=== PATIENT | female | born 1990 | race American Indian/Alaskan Native ===

== ENCOUNTER 2016-11-13 09:06 | Outpatient (CLI) | payer MEDICAID ==
--- NOTE | 2016-11-13 10:23 | Ultrasound Report ---
Right breast ultrasound: 31 week lady with newly palpable right breast mass. Imaging in the area of concern at 3:00 demonstrates an irregular but sharply contoured mass which is somewhat elongated parallel to the skin having a maximum dimension of 17.5 mm. With color imaging there is minimal internal flow. A similar but less irregular shaped nodule is located at 1:00 measuring 1 cm. It also has internal flow. Impression: Indeterminate breast nodules. Both lesions most likely represent the same tissue. Recommendation: Ultrasound guided biopsy of the 3:00 lesion due to its size and contour. The findings and recommendations have been discussed with the patient and her mother. BI-RADS CATEGORY: 4 = Suspicious ACR BI-RADS MAMMOGRAPHIC CODES: 0 = Needs additional imaging evaluation; 1 = Negative; 2 = Benign; 3 = Probably benign; 4 = Suspicious; 5 = Malignant; 6 = Known biopsy-proven malignancy COMMENT: 1. Dense breast tissue, i.e., adenosis, fibrocystic changes, etc., may obscure an underlying neoplasm. 2. Approximately 10% of cancers are not detected with mammography. 3. A negative mammography report should not delay biopsy if a clinically suspicious mass is present.
== END 2016-11-13 09:07 | disposition home or self-care (01) ==
LOC: US 09:06
PROVIDERS: ATTEND Advanced Practice Midwife
DX: N63 Unspecified lump in breast (principal)

== ENCOUNTER 2016-12-01 14:32 | Outpatient (CLI) | payer MEDICAID, OTHER | END 2016-12-01 14:33 | disposition home or self-care (01) | LOC: LABHHL 14:32 | PROVIDERS: ATTEND Surgery | DX: D24.1 Benign neoplasm of right breast (principal); N62 Hypertrophy of breast | CPT/HCPCS: 88305 ==

== ENCOUNTER 2016-12-16 08:38 | Outpatient (CLI) | payer MEDICAID ==
[2016-12-16 09:38] VITALS: BP 111/69
--- NOTE | 2016-12-16 09:59 | Ultrasound Report ---
ULTRASOUND BIOPHYSICAL PROFILE: History: well being Technique: Transabdominal ultrasound with Doppler interrogation. 2 - breathing movements 2 - movements 2 - posture and tone 2 - Qualitative amniotic fluid volume 8 - TOTAL SCORE OF POSSIBLE 8 Heart Rate (bpm) 135
--- NOTE | 2016-12-16 10:01 | Ultrasound Report ---
OB ULTRASOUND FOLLOWUP History: well-being, evaluate amniotic fluid Technique: Transabdominal ultrasound with Doppler interrogation. Gestation: Single Position: Cephalic Amniotic Fluid: Normal CYDNEY = 8.2 cm Heart Rate: 145 BPM BPD: 8.9 cm = 36 w 1 d HC: 32.7 cm = 37 w 0 d AC: 34.6 cm = 38 w 3 d FL: 7.4 cm = 37 w 5 d HC/AC Ratio: 0.94 Cephalic Index: 79.5 Estimated Weight: 3327 grams LMP: 04/08/16 Clinical age = 36 w 0 d EDC: 01/13/17 US Gest. Age = 37 w 2 d EDC: 01/04/17 IMPRESSION: No acute abnormality appreciated.
== END 2016-12-16 09:55 | disposition home or self-care (01) ==
LOC: TRG 08:38
PROVIDERS: ATTEND Obstetrics & Gynecology
DX: O47.03 False labor before 37 completed weeks of gestation, third trimester (principal); Z3A.35 35 weeks gestation of pregnancy
CPT/HCPCS: 59025; 76816; 76819

== ENCOUNTER 2019-01-08 15:00 | Emergency (ER) | payer MEDICAID ==
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
[2019-01-08] MEDS ORDERED: TETANUS,DIPH,PERTUSS(ACELL) VACCINE 0.5 ML SYRINGE IM ONE (15:09)
[2019-01-08] MEDS ORDERED: HYDROcodone/ACETAMINOPHEN 10-325MG TAB PO ONE (15:18)
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
[2019-01-08 16:21] VITALS: BP 120/74
== END 2019-01-08 18:01 | disposition home or self-care (01) ==
LOC: ED 15:00
DX: S93.401A Sprain of unspecified ligament of right ankle, initial encounter (principal); S00.03XA Contusion of scalp, initial encounter; Z91.040 Latex allergy status; Z79.899 Other long term (current) drug therapy; Y04.8XXA Assault by other bodily force, initial encounter; Y93.89 Activity, other specified; Y92.89 Other specified places as the place of occurrence of the external cause; Y99.8 Other external cause status
CPT/HCPCS: 70450; 70486; 72125; 90471; 90715

== ENCOUNTER 2019-06-19 17:18 | Emergency (ER) | payer SELFPAY ==
[2019-06-19 17:29] VITALS: BP 120/75
--- NOTE | 2019-06-19 18:03 | XRay Report ---
CHEST 2 VIEWS INDICATION / CLINICAL INFORMATION: SOB. COMPARISON: Chest x-ray 03/14/2019 FINDINGS: SUPPORT DEVICES: None. HEART / MEDIASTINUM: No significant abnormality. LUNGS / PLEURA: No significant pulmonary or pleural abnormality. No pneumothorax. ADDITIONAL FINDINGS: Mild/moderate scoliosis with bilateral Maya rods. IMPRESSION: 1. No acute findings. Signer Name: Ghassan Medina MD Signed: 06/19/2019 5:59 PM Workstation Name: [id number]
--- NOTE | 2019-06-19 18:36 | Emergency Department Report ---
ED General Adult HPI - General Chief complaint: Dyspnea/Respdistress Stated complaint: O2 LOW Time Seen by Provider: 06/19/19 18:22 Source: patient Mode of arrival: Ambulatory Limitations: No Limitations - History of Present Illness Initial comments: 29-year-old Ethiopian female resents emerged department complaining of a two-week history of cough with occasional chest congestion and mucus production but no wheezing, no hemoptysis no hematemesis no hematochezia no nausea, no vomiting no shortness of breath. States that she went to an urgent care earlier today to be evaluated and was found to have a oxygen saturation of [id number] so she was advised to come to the emergency department for further evaluation due to a reportedly decreased saturation and vague upper lateral rib pain Radiation: non-radiation Quality: aching Consistency: constant Improves with: none Worsens with: none Associated Symptoms: chest pain, cough. denies: diaphoresis, fever/chills, loss of appetite, malaise, nausea/vomiting, shortness of breath, syncope, weakness Treatments Prior to Arrival: none - Related Data Previous Rx's Medication Instructions Recorded Last Taken Type Gentamicin 0.3% Ophth Soln 2 drops OP Q4H 5 Days bottle 10/30/13 Unknown Rx Promethazine /Codeine 5 ml PO Q6H PRN #100 ml 11/29/13 Unknown Rx [Phenergan/Codeine 6.25-10 mg/5 ml] Ondansetron [Zofran Odt] 4 mg PO Q8HR PRN #12 tab.rapdis 06/08/15 Unknown Rx Sulfamethoxazole/Trimethoprim 1 each PO BID #14 tablet 06/08/15 Unknown Rx [Bactrim DS TAB] Ibuprofen [Motrin 800 MG tab] 800 mg PO Q6H PRN #30 tablet 01/03/17 Unknown Rx Acetaminophen/Codeine [Tylenol 1 tab PO Q6H PRN #12 tab 01/08/19 Unknown Rx /Codeine # 3 tab] Silver Sulfadiazine [Silvadene] 50 gm TP DAILY #1 cream..g. 01/08/19 Unknown Rx Sulfamethoxazole/Trimethoprim 1 each PO BID #14 tablet 01/08/19 Unknown Rx [Bactrim DS TAB] Ciprofloxacin HCl [Ciprofloxacin 500 mg PO Q12HR #20 tab 03/14/19 Unknown Rx TAB] Phenazopyridine [Pyridium] 200 mg PO TID #9 tab 03/14/19 Unknown Rx Azithromycin [Zithromax] 500 mg PO QDAY #3 tablet 06/19/19 Unknown Rx Benzonatate [Tessalon Perles] 100 mg PO Q8HR #20 capsule 06/19/19 Unknown Rx Allergies Allergy/AdvReac Type Severity Reaction Status Date / Time Latex, Natural Rubber Allergy Severe Swelling Verified 06/08/15 14:25 ED Review of Systems ROS: Stated complaint: O2 LOW Other details as noted in HPI Comment: All other systems reviewed and negative ED Past Medical Hx - Past Medical History Previous Medical History?: No Hx Hypertension: No Hx Congestive Heart Failure: No Hx Diabetes: No Hx Deep Vein Thrombosis: No Hx Renal Disease: No Hx Sickle Cell Disease: No Hx Seizures: No Hx Asthma: No Hx COPD: No Hx HIV: No - Surgical History Past Surgical History?: Yes Additional Surgical History: back surgery 2000 - Social History Smoking Status: Never Smoker Substance Use Type: None - Medications Home Medications: Home Medications Medication Instructions Recorded Confirmed Last Taken Type Gentamicin 0.3% Ophth Soln 2 drops OP Q4H 5 Days bottle 10/30/13 01/02/17 Unknown Rx Promethazine /Codeine 5 ml PO Q6H PRN #100 ml 11/29/13 01/02/17 Unknown Rx [Phenergan/Codeine 6.25-10 mg/5 ml] Ondansetron [Zofran Odt] 4 mg PO Q8HR PRN #12 tab.rapdis 06/08/15 01/02/17 Unknown Rx Sulfamethoxazole/Trimethoprim 1 each PO BID #14 tablet 06/08/15 01/02/17 Unknown Rx [Bactrim DS TAB] Ibuprofen [Motrin 800 MG tab] 800 mg PO Q6H PRN #30 tablet 01/03/17 Unknown Rx Acetaminophen/Codeine [Tylenol 1 tab PO Q6H PRN #12 tab 01/08/19 Unknown Rx /Codeine # 3 tab] Silver Sulfadiazine [Silvadene] 50 gm TP DAILY #1 cream..g. 01/08/19 Unknown Rx Sulfamethoxazole/Trimethoprim 1 each PO BID #14 tablet 01/08/19 Unknown Rx [Bactrim DS TAB] Ciprofloxacin HCl [Ciprofloxacin 500 mg PO Q12HR #20 tab 03/14/19 Unknown Rx TAB] Phenazopyridine [Pyridium] 200 mg PO TID #9 tab 03/14/19 Unknown Rx Azithromycin [Zithromax] 500 mg PO QDAY #3 tablet 06/19/19 Unknown Rx Benzonatate [Tessalon Perles] 100 mg PO Q8HR #20 capsule 06/19/19 Unknown Rx ED Physical Exam - General Limitations: No Limitations General appearance: alert, in no apparent distress - Head Head exam: Present: atraumatic, normocephalic - Eye Eye exam: Present: normal appearance, PERRL, EOMI Pupils: Present: normal accommodation - ENT ENT exam: Present: normal exam, normal orophraynx, mucous membranes moist - Neck Neck exam: Present: normal inspection - Respiratory Respiratory exam: Present: normal lung sounds bilaterally. Absent: respiratory distress - Cardiovascular Cardiovascular Exam: Present: regular rate, normal rhythm. Absent: systolic murmur, diastolic murmur, rubs, gallop - GI/Abdominal GI/Abdominal exam: Present: soft, normal bowel sounds - Extremities Exam Extremities exam: Present: normal inspection, full ROM, normal capillary refill - Back Exam Back exam: Present: normal inspection. Absent: CVA tenderness (R), CVA tenderness (L), muscle spasm - Neurological Exam Neurological exam: Present: alert, oriented X3, CN II-XII intact, normal gait - Psychiatric Psychiatric exam: Present: normal affect, normal mood - Skin Skin exam: Present: warm, dry, intact, normal color. Absent: rash ED Course Vital Signs 06/19/19 17:25 Temperature 98.4 F Pulse Rate 110 H Respiratory 18 Rate Blood Pressure 120/75 O2 Sat by Pulse 98 Oximetry ED Medical Decision Making - Radiology Data Radiology results: report reviewed [facility] [address] [place] [address] XRay Report Signed Patient: NICOLE NORTH MR#: [id number] : 1990 Acct:[id number] Age/Sex: 29 / F ADM Date: 06/19/19 Loc: ED Attending Dr: Ordering Physician: ZO POTTER Date of Service: 06/19/19 Procedure(s): XR chest routine 2V Accession Number(s): [id number] cc: ZO POTTER Fluoro Time In Minutes: CHEST 2 VIEWS INDICATION / CLINICAL INFORMATION: SOB. COMPARISON: Chest x-ray 03/14/2019 FINDINGS: SUPPORT DEVICES: None. HEART / MEDIASTINUM: No significant abnormality. LUNGS / PLEURA: No significant pulmonary or pleural abnormality. No pneumothorax. ADDITIONAL FINDINGS: Mild/moderate scoliosis with bilateral Maya rods. IMPRESSION: 1. No acute findings. Signer Name: Ghassan Medina MD Signed: 06/19/2019 5:59 PM Workstation Name: [id number] Transcribed By: TL Dictated By: Ghassan Medina MD Electronically Authenticated By: Ghassan Medina MD Signed Date/Time: 06/19/191758 DD/ 57 TD/TT: - Medical Decision Making This patient presents with acute cough, most consistent with bronchitis. Differential diagnosis includes bronchitis. Presentation not consistent with acute bacterial pneumonia, influenza, asthma, transient airway hyperresponsiveness. Presentation not consistent with chronic causes of cough (including GERD, asthma, postnasal discharge, medication side effect, CHF, lung cancer or mass). Plan: Normal CXR, supportive care, reassess Critical care attestation.: If time is entered above; I have spent that time in minutes in the direct care of this critically ill patient, excluding procedure time. ED Disposition Clinical Impression: Bronchitis Disposition: DC-01 TO HOME OR SELFCARE Is pt being admited?: No Does the pt Need Aspirin: No Condition: Stable Instructions: Chronic Bronchitis (ED), Acute Bronchitis (ED) Referrals: [facility] [Provider Group] - 3-5 Days
== END 2019-06-19 18:48 | disposition home or self-care (01) ==
LOC: ED 17:18
DX: J40 Bronchitis, not specified as acute or chronic (principal)
CPT/HCPCS: 71046

== ENCOUNTER 2019-09-23 09:27 | Emergency (ER) | payer MEDICAID ==
[2019-09-23 09:38] VITALS: BP 134/79
--- NOTE | 2019-09-23 12:30 | Emergency Department Report ---
ED Upper Extremity Inj HPI - General Chief Complaint: Extremity Injury, Upper Stated Complaint: LEFT ARM PAIN/CP Time Seen by Provider: 09/23/19 12:21 Source: patient Mode of arrival: Ambulatory Limitations: No Limitations - History of Present Illness Initial Comments: pt presents for left axillary abscess small x 2 days, denies fever , chills, no n/v, no drainage, pain is 3/10 , exacerbated by palpation, relieved by nothing tried. MD Complaint: Injury to:: left - Related Data Previous Rx's Medication Instructions Recorded Last Taken Type Gentamicin 0.3% Ophth Soln 2 drops OP Q4H 5 Days bottle 10/30/13 Unknown Rx Promethazine /Codeine 5 ml PO Q6H PRN #100 ml 11/29/13 Unknown Rx [Phenergan/Codeine 6.25-10 mg/5 ml] Ondansetron [Zofran Odt] 4 mg PO Q8HR PRN #12 tab.rapdis 06/08/15 Unknown Rx Sulfamethoxazole/Trimethoprim 1 each PO BID #14 tablet 06/08/15 Unknown Rx [Bactrim DS TAB] Ibuprofen [Motrin 800 MG tab] 800 mg PO Q6H PRN #30 tablet 01/03/17 Unknown Rx Acetaminophen/Codeine [Tylenol 1 tab PO Q6H PRN #12 tab 01/08/19 Unknown Rx /Codeine # 3 tab] Silver Sulfadiazine [Silvadene] 50 gm TP DAILY #1 cream..g. 01/08/19 Unknown Rx Sulfamethoxazole/Trimethoprim 1 each PO BID #14 tablet 01/08/19 Unknown Rx [Bactrim DS TAB] Ciprofloxacin HCl [Ciprofloxacin 500 mg PO Q12HR #20 tab 03/14/19 Unknown Rx TAB] Phenazopyridine [Pyridium] 200 mg PO TID #9 tab 03/14/19 Unknown Rx Azithromycin [Zithromax] 500 mg PO QDAY #3 tablet 06/19/19 Unknown Rx Benzonatate [Tessalon Perles] 100 mg PO Q8HR #20 capsule 06/19/19 Unknown Rx cephALEXin [Keflex] 500 mg PO Q8HR 7 Days #21 cap 09/23/19 Unknown Rx traMADoL [Ultram] 50 mg PO Q6HR PRN #12 tablet 09/23/19 Unknown Rx Allergies Allergy/AdvReac Type Severity Reaction Status Date / Time Latex, Natural Rubber Allergy Severe Swelling Verified 06/08/15 14:25 ED Review of Systems ROS: Stated complaint: LEFT ARM PAIN/CP Other details as noted in HPI Constitutional: denies: chills, fever Eyes: denies: eye pain, eye discharge, vision change ENT: denies: ear pain, throat pain Respiratory: denies: cough, shortness of breath, wheezing Cardiovascular: denies: chest pain, palpitations Endocrine: no symptoms reported Gastrointestinal: denies: abdominal pain, nausea, diarrhea Genitourinary: denies: urgency, dysuria, discharge Musculoskeletal: denies: back pain, joint swelling, arthralgia Skin: other (abscess left axillary ) Neurological: denies: headache, weakness, paresthesias Psychiatric: denies: anxiety, depression Hematological/Lymphatic: denies: easy bleeding, easy bruising ED Past Medical Hx - Past Medical History Previous Medical History?: No Hx Hypertension: No Hx Congestive Heart Failure: No Hx Diabetes: No Hx Deep Vein Thrombosis: No Hx Renal Disease: No Hx Sickle Cell Disease: No Hx Seizures: No Hx Asthma: No Hx COPD: No Hx HIV: No - Surgical History Past Surgical History?: Yes Additional Surgical History: back surgery 2000 - Social History Smoking Status: Never Smoker Substance Use Type: None - Medications Home Medications: Home Medications Medication Instructions Recorded Confirmed Last Taken Type Gentamicin 0.3% Ophth Soln 2 drops OP Q4H 5 Days bottle 10/30/13 01/02/17 Unknown Rx Promethazine /Codeine 5 ml PO Q6H PRN #100 ml 11/29/13 01/02/17 Unknown Rx [Phenergan/Codeine 6.25-10 mg/5 ml] Ondansetron [Zofran Odt] 4 mg PO Q8HR PRN #12 tab.rapdis 06/08/15 01/02/17 Unknown Rx Sulfamethoxazole/Trimethoprim 1 each PO BID #14 tablet 06/08/15 01/02/17 Unknown Rx [Bactrim DS TAB] Ibuprofen [Motrin 800 MG tab] 800 mg PO Q6H PRN #30 tablet 01/03/17 Unknown Rx Acetaminophen/Codeine [Tylenol 1 tab PO Q6H PRN #12 tab 01/08/19 Unknown Rx /Codeine # 3 tab] Silver Sulfadiazine [Silvadene] 50 gm TP DAILY #1 cream..g. 01/08/19 Unknown Rx Sulfamethoxazole/Trimethoprim 1 each PO BID #14 tablet 01/08/19 Unknown Rx [Bactrim DS TAB] Ciprofloxacin HCl [Ciprofloxacin 500 mg PO Q12HR #20 tab 03/14/19 Unknown Rx TAB] Phenazopyridine [Pyridium] 200 mg PO TID #9 tab 03/14/19 Unknown Rx Azithromycin [Zithromax] 500 mg PO QDAY #3 tablet 06/19/19 Unknown Rx Benzonatate [Tessalon Perles] 100 mg PO Q8HR #20 capsule 06/19/19 Unknown Rx cephALEXin [Keflex] 500 mg PO Q8HR 7 Days #21 cap 09/23/19 Unknown Rx traMADoL [Ultram] 50 mg PO Q6HR PRN #12 tablet 09/23/19 Unknown Rx ED Physical Exam - General Limitations: No Limitations General appearance: alert, in no apparent distress - Head Head exam: Present: atraumatic, normocephalic - Eye Eye exam: Present: normal appearance - ENT ENT exam: Present: normal exam - Neck Neck exam: Present: normal inspection - Respiratory Respiratory exam: Present: normal lung sounds bilaterally. Absent: respiratory distress - Cardiovascular Cardiovascular Exam: Present: regular rate, normal rhythm. Absent: systolic murmur, diastolic murmur, rubs, gallop - GI/Abdominal GI/Abdominal exam: Present: soft, normal bowel sounds - Rectal Rectal exam: Present: deferred - Extremities Exam Extremities exam: Present: full ROM, tenderness (left axillary abscess 1x1 cm , firm non fluctuant , mild erythema, no drainage. ). Absent: normal capillary refill, joint swelling - Back Exam Back exam: Present: normal inspection - Neurological Exam Neurological exam: Present: alert, oriented X3 - Psychiatric Psychiatric exam: Present: normal affect, normal mood - Skin Skin exam: Present: warm, dry, intact, normal color, erythema (left axillary abscess as above). Absent: rash ED Course Vital Signs 09/23/19 09:36 Temperature 97.4 F L Pulse Rate 99 H Respiratory 17 Rate Blood Pressure 134/79 O2 Sat by Pulse 99 Oximetry ED Medical Decision Making - Medical Decision Making pt declined I&D of left axillary abscess. dc to home with rx , follow up with pcp, warm compresses , pt verbalized agreemena and understanding of same. Critical care attestation.: If time is entered above; I have spent that time in minutes in the direct care of this critically ill patient, excluding procedure time. ED Disposition Clinical Impression: Abscess of left axilla Disposition: - TO HOME OR SELFCARE Is pt being admited?: No Does the pt Need Aspirin: No Condition: Stable Instructions: Abscess (ED) Prescriptions: cephALEXin [Keflex] 500 mg PO Q8HR 7 Days #21 cap traMADoL [Ultram] 50 mg PO Q6HR PRN #12 tablet PRN Reason: Pain Referrals: [facility] [Provider Group] - 3-5 Days Forms: Work/School Release Form(ED) Time of Disposition: 12:26
== END 2019-09-23 13:30 | disposition home or self-care (01) ==
LOC: ED 09:27
DX: L02.412 Cutaneous abscess of left axilla (principal); Z79.1 Long term (current) use of non-steroidal anti-inflammatories (NSAID); Z79.899 Other long term (current) drug therapy; Z91.040 Latex allergy status
CPT/HCPCS: 99282

== ENCOUNTER 2020-05-27 03:51 | Emergency (ER) | payer SELFPAY | END 2020-05-27 04:30 | disposition left against medical advice (07) | LOC: ED 03:51 | DX: R51.9 Headache, unspecified (principal); Z53.21 Procedure and treatment not carried out due to patient leaving prior to being seen by health care provider ==

== ENCOUNTER 2020-12-04 12:49 | Emergency (ER) | payer OTHER ==
[2020-12-04 13:07] VITALS: BP 109/80
--- NOTE | 2020-12-04 14:38 | Vascular Lab Report ---
DUPLEX DOPPLER LOWER EXTREMITY VEINS, RIGHT INDICATION: right posterior leg pain after road trip. Lower extremity pain and swelling. TECHNIQUE: Duplex doppler imaging was performed through the veins of the right lower extremity using venous comp ression and other maneuvers. COMPARISON: None available. FINDINGS: Common Femoral vein: Negative. Superficial Femoral vein: Negative. Popliteal vein: Negative. Calf veins: Negative. Additional findings: None. IMPRESSION: 1. No sonographic evidence for DVT in the right lower extremity. Signer Name: Víctor Rainey MD Signed: 12/04/2020 2:33 PM Workstation Name: [id number]
--- NOTE | 2020-12-04 15:41 | Emergency Department Report ---
ED General Adult HPI - General Chief complaint: Chest Pain Stated complaint: CHESTPAIN/RT LEG PAIN Time Seen by Provider: 12/04/20 13:11 Source: patient Mode of arrival: Ambulatory Limitations: No Limitations - History of Present Illness Initial comments: Chief complaint: "I had a little bit of chest pain. I really came to get my leg checked out." HPI: This is a healthy 30-year-old female with no significant past medical history who presents with right leg pain for 2 months. Pain began after a road trip. Patient has nondescript chest pain which began 1 week ago. Mild in nature. Not persistent. Patient does not have any chest pain this time. Denies shortness of breath. Her main concern to months of posterior right knee right leg pain. Father has history of DVT. No swelling. No trauma. -: Gradual, month(s) (2 months) Location: chest, right, lower extremity Severity scale (0 -10): 2 Quality: aching, dull Consistency: constant Improves with: none Worsens with: none Associated Symptoms: chest pain, other (Right leg pain) - Related Data Previous Rx's Medication Instructions Recorded Last Taken Type Gentamicin 0.3% Ophth Soln 2 drops OP Q4H 5 Days bottle 10/30/13 Unknown Rx Promethazine /Codeine 5 ml PO Q6H PRN #100 ml 11/29/13 Unknown Rx [Phenergan/Codeine 6.25-10 mg/5 ml] Ondansetron [Zofran Odt] 4 mg PO Q8HR PRN #12 tab.rapdis 06/08/15 Unknown Rx Sulfamethoxazole/Trimethoprim 1 each PO BID #14 tablet 06/08/15 Unknown Rx [Bactrim DS TAB] Ibuprofen [Motrin 800 MG tab] 800 mg PO Q6H PRN #30 tablet 01/03/17 Unknown Rx Acetaminophen/Codeine [Tylenol 1 tab PO Q6H PRN #12 tab 01/08/19 Unknown Rx /Codeine # 3 tab] Silver Sulfadiazine [Silvadene] 50 gm TP DAILY #1 cream..g. 01/08/19 Unknown Rx Sulfamethoxazole/Trimethoprim 1 each PO BID #14 tablet 01/08/19 Unknown Rx [Bactrim DS TAB] Ciprofloxacin HCl [Ciprofloxacin 500 mg PO Q12HR #20 tab 12/31/19 Unknown Rx TAB] Phenazopyridine [Pyridium] 200 mg PO TID #9 tab 03/14/19 Unknown Rx Azithromycin [Zithromax] 500 mg PO QDAY #3 tablet 06/19/19 Unknown Rx Benzonatate [Tessalon Perles] 100 mg PO Q8HR #20 capsule 06/19/19 Unknown Rx cephALEXin [Keflex] 500 mg PO Q8HR 7 Days #21 cap 09/23/19 Unknown Rx traMADoL [Ultram] 50 mg PO Q6HR PRN #12 tablet 09/23/19 Unknown Rx Allergies Allergy/AdvReac Type Severity Reaction Status Date / Time Latex, Natural Rubber Allergy Severe Swelling Verified 12/04/20 13:03 ED Review of Systems ROS: Stated complaint: CHESTPAIN/RT LEG PAIN Other details as noted in HPI Comment: All other systems reviewed and negative Constitutional: denies: chills, fever, malaise Respiratory: denies: cough, shortness of breath Cardiovascular: chest pain Gastrointestinal: denies: abdominal pain, nausea, vomiting Musculoskeletal: arthralgia ED Past Medical Hx - Past Medical History Previous Medical History?: No Hx Hypertension: No Hx Congestive Heart Failure: No Hx Diabetes: No Hx Deep Vein Thrombosis: No Hx Renal Disease: No Hx Sickle Cell Disease: No Hx Seizures: No Hx Asthma: No Hx COPD: No Hx HIV: No - Surgical History Past Surgical History?: Yes Additional Surgical History: back surgery 2000 - Social History Smoking Status: Never Smoker Substance Use Type: None - Medications Home Medications: Home Medications Medication Instructions Recorded Confirmed Last Taken Type Gentamicin 0.3% Ophth Soln 2 drops OP Q4H 5 Days bottle 10/30/13 01/02/17 Unknown Rx Promethazine /Codeine 5 ml PO Q6H PRN #100 ml 11/29/13 01/02/17 Unknown Rx [Phenergan/Codeine 6.25-10 mg/5 ml] Ondansetron [Zofran Odt] 4 mg PO Q8HR PRN #12 tab.rapdis 06/08/15 01/02/17 Unknown Rx Sulfamethoxazole/Trimethoprim 1 each PO BID #14 tablet 06/08/15 01/02/17 Unknown Rx [Bactrim DS TAB] Ibuprofen [Motrin 800 MG tab] 800 mg PO Q6H PRN #30 tablet 10/22/17 Unknown Rx Acetaminophen/Codeine [Tylenol 1 tab PO Q6H PRN #12 tab 01/08/19 Unknown Rx /Codeine # 3 tab] Silver Sulfadiazine [Silvadene] 50 gm TP DAILY #1 cream..g. 01/08/19 Unknown Rx Sulfamethoxazole/Trimethoprim 1 each PO BID #14 tablet 01/08/19 Unknown Rx [Bactrim DS TAB] Ciprofloxacin HCl [Ciprofloxacin 500 mg PO Q12HR #20 tab 03/14/19 Unknown Rx TAB] Phenazopyridine [Pyridium] 200 mg PO TID #9 tab 03/14/19 Unknown Rx Azithromycin [Zithromax] 500 mg PO QDAY #3 tablet 06/19/19 Unknown Rx Benzonatate [Tessalon Perles] 100 mg PO Q8HR #20 capsule 06/19/19 Unknown Rx cephALEXin [Keflex] 500 mg PO Q8HR 7 Days #21 cap 09/23/19 Unknown Rx traMADoL [Ultram] 50 mg PO Q6HR PRN #12 tablet 09/23/19 Unknown Rx ED Physical Exam - General Limitations: No Limitations General appearance: alert, in no apparent distress, other (Normal gait smiling appears comfortable) - Head Head exam: Present: atraumatic, normocephalic - Eye Eye exam: Present: normal appearance - ENT ENT exam: Present: mucous membranes moist - Neck Neck exam: Present: normal inspection - Respiratory Respiratory exam: Present: normal lung sounds bilaterally. Absent: respiratory distress, wheezes, rales, rhonchi - Cardiovascular Cardiovascular Exam: Present: regular rate, normal rhythm, normal heart sounds. Absent: systolic murmur, diastolic murmur, rubs, gallop - GI/Abdominal GI/Abdominal exam: Present: soft, normal bowel sounds. Absent: distended, tenderness, guarding - Extremities Exam Extremities exam: Present: normal inspection - Back Exam Back exam: Present: normal inspection - Neurological Exam Neurological exam: Present: alert, oriented X3 - Psychiatric Psychiatric exam: Present: normal affect, normal mood - Skin Skin exam: Present: warm, dry, intact, normal color. Absent: rash ED Course Vital Signs 12/04/20 12/04/20 13:06 13:07 Temperature 98.2 F Pulse Rate 76 Respiratory 20 Rate Blood Pressure 109/80 O2 Sat by Pulse 96 Oximetry ED Medical Decision Making - EKG Data -: EKG Interpreted by Me EKG shows normal: sinus rhythm, axis, intervals, QRS complexes, ST-T waves Rate: normal - EKG Data Interpretation: normal EKG - Radiology Data Radiology results: report reviewed Patient Name: NICOLE NORTH Gender: Female Date of : 1990 Referring Provider: BENITO THURMAN Organization: [facility] Accession Number: [id number] Requested Date: December 04, 2020 13:20 Report Status: Final Requested Procedure: 1 Procedure Description: VL venous duplex LE RT Modality: VL Findings Reporting MD: Víctor Rainey Dictation Time: December 04, 2020 13:33 Fondant Cooker: Not available 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 Lower extremity pain and swelling. TECHNIQUE: Duplex doppler imaging was performed through the veins of the right lower extr emity using venous compression and other maneuvers. COMPARISON: None available. FINDINGS: Common Femoral vein: Negative. Superficial Femoral vein: Negative. Popliteal vein: Negative. Calf veins: Negative. Additional findings: None. IMPRESSION: 1. No sonographic evidence for DVT in the right lower extremity. Signer Name: Víctor Rainey MD Signed: 12/04/2020 1:33 PM Workstation Name: [id number] - Medical Decision Making 1. Chest pain due to GERD indigestion normal EKG 2. Right leg pain: Right knee strain no evidence of DVT according to Doppler ultrasound. Referred to internal medicine physician. Critical care attestation.: If time is entered above; I have spent that time in minutes in the direct care of this critically ill patient, excluding procedure time. ED Disposition Clinical Impression: GERD (gastroesophageal reflux disease), Strain of right knee Disposition: HOME / SELF CARE / HOMELESS Is pt being admited?: No Does the pt Need Aspirin: No Condition: Stable Instructions: Indigestion, [id number], Knee Sprain, Adult Referrals: [facility] [Staff Physician] - 3-5 Days
--- NOTE | 2020-12-06 08:43 | Electrocardiograph Report ---
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
== END 2020-12-04 16:31 | disposition home or self-care (01) ==
LOC: ED 12:49
DX: S86.811A Strain of other muscle(s) and tendon(s) at lower leg level, right leg, initial encounter (principal); K21.00 Gastro-esophageal reflux disease with esophagitis, without bleeding; Z91.040 Latex allergy status
CPT/HCPCS: 93005; 99283

== ENCOUNTER 2021-04-06 08:31 | Emergency (ER) | payer OTHER ==
--- NOTE | 2021-04-06 10:12 | Emergency Department Report ---
Minor Respiratory - HPI Chief Complaint: Upper Respiratory Infection Stated Complaint: LUPE/COUGHING Time Seen by Provider: 04/06/21 10:07 Duration: 2 week Minor Respiratory: Yes Able to Tolerate Fluids, Yes Cough, Yes Chest Pain, Yes Shortness of Breath, No Rhinorrhea, No Sore Throat, No Ear Pain, No Sick Contacts, No Hemoptysis, No Fever Other History: 31-year-old -[place] female presents to the emergency room complaining of a cough and intermittent fatigue. Patient states that she tested positive for COVID 2 weeks ago. She is taking any herbal tea for her symptoms. Patient denies any fever chills no nausea no vomiting. States that the cough is just intermittent not constant and when it does, it is kind of violent fits. She states that she will have intermittent chest pain with the cough. ED Review of Systems ROS: Stated complaint: LUPE/COUGHING Other details as noted in HPI Comment: All other systems reviewed and negative ED Past Medical Hx - Past Medical History Hx Hypertension: No Hx Congestive Heart Failure: No Hx Diabetes: No Hx Deep Vein Thrombosis: No Hx Renal Disease: No Hx Sickle Cell Disease: No Hx Seizures: No Hx Asthma: No Hx COPD: No Hx HIV: No - Surgical History Additional Surgical History: back surgery 2000 - Social History Smoking Status: Never Smoker Substance Use Type: None - Medications Home Medications: Home Medications Medication Instructions Recorded Confirmed Last Taken Type Gentamicin 0.3% Ophth Soln 2 drops OP Q4H 5 Days bottle 10/30/13 01/02/17 Unknown Rx Promethazine /Codeine 5 ml PO Q6H PRN #100 ml 11/29/13 01/02/17 Unknown Rx [Phenergan/Codeine 6.25-10 mg/5 ml] Ondansetron [Zofran Odt] 4 mg PO Q8HR PRN #12 tab.rapdis 06/08/15 01/02/17 Unknown Rx Sulfamethoxazole/Trimethoprim 1 each PO BID #14 tablet 06/08/15 01/02/17 Unknown Rx [Bactrim DS TAB] Ibuprofen [Motrin 800 MG tab] 800 mg PO Q6H PRN #30 tablet 01/03/17 Unknown Rx Acetaminophen/Codeine [Tylenol 1 tab PO Q6H PRN #12 tab 01/08/19 Unknown Rx /Codeine # 3 tab] Silver Sulfadiazine [Silvadene] 50 gm TP DAILY #1 cream..g. 01/08/19 Unknown Rx Sulfamethoxazole/Trimethoprim 1 each PO BID #14 tablet 01/08/19 Unknown Rx [Bactrim DS TAB] Ciprofloxacin HCl [Ciprofloxacin 500 mg PO Q12HR #20 tab 03/14/19 Unknown Rx TAB] Phenazopyridine [Pyridium] 200 mg PO TID #9 tab 03/14/19 Unknown Rx Azithromycin [Zithromax] 500 mg PO QDAY #3 tablet 06/19/19 Unknown Rx Benzonatate [Tessalon Perles] 100 mg PO Q8HR #20 capsule 06/19/19 Unknown Rx cephALEXin [Keflex] 500 mg PO Q8HR 7 Days #21 cap 09/23/19 Unknown Rx traMADoL [Ultram] 50 mg PO Q6HR PRN #12 tablet 09/23/19 Unknown Rx Cetirizine HCl 10 mg PO QDAY #20 04/06/21 Unknown Rx Minor Respiratory Exam - Exam General: Vital signs noted. No distress. Alert and acting appropriately. HEENT: Yes Moist Mucous Membranes, No Pharyngeal Erythema, No Pharyngeal Exudates, No Rhinorrhea, No Conjuctival Injection, No Frontal Tenderness, No Maxillary Tenderness Neck: Yes Supple, No Adenopathy Lungs: Yes Good Air Exchange, No Wheezes, No Ronchi, No Stridor, No Cough, No Labored Respirations, No Retractions, No Use of Accessory Muscles, No Other Abnormal Lung Sounds Heart: Yes Regular, No Murmur Abdomen: Yes Normal Bowel Sounds, No Tenderness, No Peritoneal Signs Skin: No Rash, No Edema Neurologic: Alert and oriented, no deficits. Musculoskeletal: Unremarkable. ED Course Vital Signs 04/06/21 08:57 Temperature 98.6 F Pulse Rate 76 Respiratory 16 Rate Blood Pressure 115/71 [Right] O2 Sat by Pulse 99 Oximetry ED Medical Decision Making - Medical Decision Making 31-year-old -[place] female presents to the emergency room complaining of a cough and intermittent fatigue. Patient states that she tested positive for COVID 2 weeks ago. She is taking any herbal tea for her symptoms. Patient denies any fever chills no nausea no vomiting. States that the cough is just intermittent not constant and when it does, it is kind of violent fits. She states that she will have intermittent chest pain with the cough. Discussed with patient she should try Claritin or Zyrtec's. Continue with her herbal teas. Discussed with patient at this cough can linger for 2 to 3 months. Follow-up with her primary care provider for any further concerns Critical care attestation.: If time is entered above; I have spent that time in minutes in the direct care of this critically ill patient, excluding procedure time. ED Disposition Clinical Impression: Cough with exposure to COVID-19 virus Disposition: HOME / SELF CARE / HOMELESS Is pt being admited?: No Does the pt Need Aspirin: No Condition: Stable Instructions: Cough, Adult, [id number] Additional Instructions: Please take medication as prescribed. Get retested once you have a negative test she can get her vaccination. Prescriptions: Cetirizine HCl 10 mg PO QDAY #20 Referrals: PRIMARY CARE, [Primary Care Provider] - 3-5 Days Time of Disposition: 10:19
[2021-04-06 10:43] VITALS: BP 112/74
== END 2021-04-06 10:43 | disposition home or self-care (01) ==
LOC: ED 08:31
DX: R05.9 Cough, unspecified (principal); Z20.822 Contact with and (suspected) exposure to COVID-19; Z79.899 Other long term (current) drug therapy; Z98.890 Other specified postprocedural states
CPT/HCPCS: 99282